=== PATIENT | female | born 1950 | race Caucasian/White ===

== ENCOUNTER 2020-02-14 15:16 | Inpatient (IN) | payer MEDICARE ==
[~2020-02-14] VITALS: Ht 167.6 cm; Wt 77.4 kg
--- NOTE | 2020-02-14 16:58 | NUR ---
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
[2020-02-14] MEDS ORDERED: SODIUM CHLORIDE FLUSH 10ML SYR IVF ONE (17:30)
--- NOTE | 2020-02-14 17:45 | NUR ---
PT RESTING IN GURNEY WITH PT'S AT BEDSIDE, NO NEEDS AT THIS TIME PER PT.
[2020-02-14 17:53] LABS: INTERNATIONAL NORMALIZED RATIO 1.48 (0.93-1.1); PROTHROMBIN TIME 15.6 Seconds (9.6-11.5)
[2020-02-14 17:56] LABS: ALANINE AMINOTRANSFERASE 17 U/L (12-78); ALBUMIN 1.8 g/dL (3.4-5.0); ANION GAP 8 mmol/L (5-15); CALCIUM 9.7 mg/dL (8.5-10.1); CHLORIDE 92 mmol/L (98-107); CREATININE 1.43 mg/dL (0.55-1.02)
[2020-02-14 17:58] LABS: ALKALINE PHOSPHATASE 198 U/L (45-117); BILIRUBIN,TOTAL 1.7 mg/dL (0.2-1.0); TOTAL PROTEIN 7.7 g/dL (6.4-8.2)
[2020-02-14 18:35] LABS: BASOPHILS % (AUTO) 0 % (0-1); EOSINOPHILS % (AUTO) 1 % (1-7); LYMPHOCYTES % (AUTO) 11 % (22-44); MEAN CORPUSCULAR HEMOGLOBIN 31.3 pg (27.0-34.8); MEAN CORPUSCULAR HGB CONC 33.6 g/dL (32.4-35.8); MEAN PLATELET VOLUME 7.2 fL (7.4-10.4); MONOCYTES % (AUTO) 12 % (2-9); NEUTROPHILS % (AUTO) 76 % (42-75); PLATELET COUNT 476 x10^3/uL (130-400); RED BLOOD COUNT 3.97 x10^6/uL (3.82-5.3); RED CELL DISTRIBUTION WIDTH 15.8 % (9.6-15.2)
[2020-02-14 18:39] LABS: MD NO
--- NOTE | 2020-02-14 18:49 | NUR ---
PT RESTING IN [place]ER[place], PER PT NO NEEDS AT THIS TIME.
[2020-02-14 18:50] LABS: MICROSCOPIC NOT IND
--- NOTE | 2020-02-14 19:00 | NUR ---
PT'S AND PT EDUCATED ABOUT THE NEED TO CALL BEFORE GETTING OUT OF BED TO AVOID FALLING. PT CURRENTLY RESTING IN [place], NO NEEDS AT THIS TIME. PT'S AT BEDSIDE.
[2020-02-14] MEDS ORDERED: SODIUM CHLORIDE 0.9%, 500ML IVBOLUS ONE ×2 (19:30→23:30)
[2020-02-14] MEDS ORDERED: LIDOCAINE 1%, 10ML ONE (20:05)
[2020-02-14] MEDS ORDERED: LIDOCAINE-MPF 1%, 5ML ONE (20:05)
--- NOTE | 2020-02-14 20:11 | NUR ---
PT IS AT US AT THIS TIME.
--- NOTE | 2020-02-14 21:08 | NUR ---
PT BACK FROM US VIA [facility].
[2020-02-14] MEDS ORDERED: CHOL10003 PO (23:47)
[2020-02-14] MEDS ORDERED: FURO20TA3 PO (23:47)
[2020-02-14] MEDS ORDERED: OMEP-110 PO (23:47)
[2020-02-14] MEDS ORDERED: RIFA550T4 PO (23:47)
[2020-02-14] MEDS ORDERED: POTA10TA6 PO (23:47)
[2020-02-14] MEDS ORDERED: SPIR100T4 PO (23:47)
[2020-02-14] MEDS ORDERED: METO50TA82 PO (23:47)
[2020-02-14] MEDS ORDERED: QUET100T PO (23:47)
[2020-02-14] MEDS ORDERED: TRAM50TA2 PO (23:47)
--- NOTE | 2020-02-15 00:12 | NUR ---
PT RESTING IN [place], PT'S AT BEDSIDE CURRENTLY. PT'S IS GOING TO GO HOME BUT WOULD LIKE TO BE UPDATED WITH ANY CHANGES TO POC, WILL CALL TOMORROW MORNING. PT OKAY WITH BEING UPDATED AND INFORMED ABOUT POC AND UPDATES.
--- NOTE | 2020-02-15 00:14 | NUR ---
SAVI () CELL PHONE: [phone], HOME PHONE: [phone]
[2020-02-15] MEDS ORDERED: LIDODERM 5% PATCH TD PRN (01:00)
[2020-02-15] MEDS ORDERED: MELATONIN 5 MG TABLET PO PRN (01:00)
[2020-02-15] MEDS ORDERED: ACETAMINOPHEN 325 MG TABLET PO PRN (01:00)
[2020-02-15] MEDS ORDERED: DOCUSATE 100 MG CAPSULE PO PRN (01:00)
[2020-02-15] MEDS ORDERED: LABETALOL 5MG/ML, 20ML IVPush PRN (01:00)
[2020-02-15 01:03] LABS: CHLORIDE,URINE RANDOM 53 mmol/L; POTASSIUM,URINE RANDOM 44 mmol/L; SODIUM,URINE RANDOM 27 mmol/L
[2020-02-15 01:12] LABS: ANION GAP 10 mmol/L (5-15); CALCIUM 8.8 mg/dL (8.5-10.1); CHLORIDE 92 mmol/L (98-107); CREATININE 1.28 mg/dL (0.55-1.02)
[2020-02-15 01:22] LABS: OSMOLALITY,URINE 296 mOsm/kg (500-850)
[2020-02-15 02:00] VITALS: BP 102/70
[2020-02-15] MEDS: HEPARIN 5,000 UNITS/ML, 1ML SQ SCH ×2 (03:44→11:10)
[2020-02-15] MEDS: INSULIN LISPRO 100 UNITS/ML, PEN SQ-INSULIN SCH ×5 (04:03→21:18)
[2020-02-15] MEDS: SODIUM CHLORIDE 0.9% 500 ML IV SCH ×2 (04:04→12:12)
[2020-02-15 07:42] VITALS: BP 100/69
[2020-02-15] MEDS ORDERED: METOPROLOL TARTRATE 25 MG TAB PO SCH (09:00)
[2020-02-15] MEDS ORDERED: FUROSEMIDE 20 MG TABLET PO SCH (09:00)
[2020-02-15] MEDS ORDERED: POTASSIUM CHLORIDE 10 MEQ TABLET.ER PO SCH (09:00)
[2020-02-15] MEDS: OMEPRAZOLE 20 MG CAPSULE.DR PO SCH (11:12)
[2020-02-15] MEDS: RIFAXIMIN 550 MG TABLET PO SCH (11:12)
[2020-02-15] MEDS: CHOLECALCIFEROL 1,000 UNIT TABLET PO SCH (11:13)
[2020-02-15 11:27] VITALS: BP 78/60
[2020-02-15] MEDS: SPIRONOLACTONE 100 MG TABLET PO SCH (11:31)
[2020-02-15] MEDS: QUETIAPINE 100MG TABLET PO SCH ×2 (11:32→21:00)
[2020-02-15 12:15] VITALS: BP 86/61
[2020-02-15 19:35] VITALS: BP 88/60
[2020-02-16 01:03] VITALS: BP 80/56
[2020-02-16 04:15] VITALS: BP 83/58
[2020-02-16 04:42] LABS: BASOPHILS % (AUTO) 1 % (0-1); EOSINOPHILS % (AUTO) 3 % (1-7); LYMPHOCYTES % (AUTO) 18 % (22-44); MEAN CORPUSCULAR HEMOGLOBIN 31.3 pg (27.0-34.8); MEAN CORPUSCULAR HGB CONC 33.7 g/dL (32.4-35.8); MEAN PLATELET VOLUME 6.8 fL (7.4-10.4); MONOCYTES % (AUTO) 12 % (2-9); NEUTROPHILS % (AUTO) 66 % (42-75); PLATELET COUNT 386 x10^3/uL (130-400); RED BLOOD COUNT 3.79 x10^6/uL (3.82-5.3); RED CELL DISTRIBUTION WIDTH 15.9 % (9.6-15.2)
[2020-02-16 04:50] LABS: MD NO
[2020-02-16 04:51] LABS: ANION GAP 5 mmol/L (5-15); CALCIUM 8.6 mg/dL (8.5-10.1); CHLORIDE 98 mmol/L (98-107); CREATININE 1.45 mg/dL (0.55-1.02)
[2020-02-16 05:59] VITALS: BP 97/64
[2020-02-16] MEDS: INSULIN LISPRO 100 UNITS/ML, PEN SQ-INSULIN SCH (06:24)
[2020-02-16 08:20] VITALS: BP 90/62
[2020-02-16] MEDS ORDERED: FUROSEMIDE 40 MG TABLET PO SCH (09:00)
[2020-02-16] MEDS: SPIRONOLACTONE 100 MG TABLET PO SCH (09:30)
[2020-02-16] MEDS: QUETIAPINE 100MG TABLET PO SCH ×2 (09:31→20:53)
[2020-02-16] MEDS: OMEPRAZOLE 20 MG CAPSULE.DR PO SCH (09:31)
[2020-02-16] MEDS: RIFAXIMIN 550 MG TABLET PO SCH (09:31)
[2020-02-16] MEDS: CHOLECALCIFEROL 1,000 UNIT TABLET PO SCH (09:31)
[2020-02-16] MEDS ORDERED: ALBUMIN HUMAN 25% 100 ML IV ONE (13:30)
[2020-02-16 14:25] VITALS: BP 92/60
[2020-02-16 18:47] VITALS: BP 97/66
[2020-02-17 02:00] VITALS: BP 92/58
[2020-02-17] MEDS ORDERED: ALBUMIN HUMAN 25% 100 ML ONE (06:25)
[2020-02-17] MEDS ORDERED: ALBUMIN HUMAN 25% 100 ML IV ONE (06:30)
[2020-02-17 06:45] VITALS: BP 94/60
[2020-02-17 07:57] LABS: BASOPHILS % (AUTO) 1 % (0-1); EOSINOPHILS % (AUTO) 3 % (1-7); LYMPHOCYTES % (AUTO) 17 % (22-44); MEAN CORPUSCULAR HEMOGLOBIN 31.6 pg (27.0-34.8); MEAN CORPUSCULAR HGB CONC 33.8 g/dL (32.4-35.8); MEAN PLATELET VOLUME 6.8 fL (7.4-10.4); MONOCYTES % (AUTO) 12 % (2-9); NEUTROPHILS % (AUTO) 67 % (42-75); PLATELET COUNT 373 x10^3/uL (130-400); RED CELL DISTRIBUTION WIDTH 15.9 % (9.6-15.2)
[2020-02-17 08:06] LABS: MD NO
[2020-02-17 08:08] LABS: CHLORIDE 97 mmol/L (98-107)
[2020-02-17 08:15] LABS: ALANINE AMINOTRANSFERASE 14 U/L (12-78); ALBUMIN 1.9 g/dL (3.4-5.0); ALKALINE PHOSPHATASE 148 U/L (45-117); ANION GAP 8 mmol/L (5-15); BILIRUBIN,TOTAL 1.7 mg/dL (0.2-1.0); TOTAL PROTEIN 5.9 g/dL (6.4-8.2)
[2020-02-17] MEDS ORDERED: FUROSEMIDE 40 MG TABLET PO SCH ×2 (09:00)
[2020-02-17] MEDS: QUETIAPINE 100MG TABLET PO SCH (09:45)
[2020-02-17] MEDS: CHOLECALCIFEROL 1,000 UNIT TABLET PO SCH (09:45)
[2020-02-17] MEDS: OMEPRAZOLE 20 MG CAPSULE.DR PO SCH (09:45)
[2020-02-17] MEDS: RIFAXIMIN 550 MG TABLET PO SCH (09:45)
[2020-02-17 11:12] VITALS: BP 90/59
[2020-02-17] MEDS: SPIRONOLACTONE 100 MG TABLET PO SCH (11:54)
[2020-02-17 12:01] VITALS: BP 94/63
[2020-02-17] MEDS: MIDODRINE 5 MG TABLET PO SCH ×2 (13:05→16:05)
[2020-02-17 13:10] VITALS: BP 110/69
[2020-02-17] MEDS ORDERED: FURO40TA6 PO (16:34)
[2020-02-17] MEDS ORDERED: MIDO5TAB9 PO (16:34)
== END 2020-02-17 18:25 | disposition home health service (06) | DRG 432 ==
LOC: ED 23:48 → EDIP 02-15 00:33 → 4WST 02-15 01:53
PROVIDERS: ADMIT Internal Medicine; ATTEND Hospitalist
PROC: 0W9G3ZZ Drainage of Peritoneal Cavity, Percutaneous Approach (ICD-10-PCS; principal; 2020-02-15)
PROC: 0T9B70Z Drainage of Bladder with Drainage Device, Via Natural or Artificial Opening (ICD-10-PCS; 2020-02-15)
DX: K70.31 Alcoholic cirrhosis of liver with ascites (principal); G93.41 Metabolic encephalopathy; N17.0 Acute kidney failure with tubular necrosis; E43 Unspecified severe protein-calorie malnutrition; D68.9 Coagulation defect, unspecified; E87.1 Hypo-osmolality and hyponatremia; E87.70 Fluid overload, unspecified; I10 Essential (primary) hypertension; Z81.1 Family history of alcohol abuse and dependence; Z85.820 Personal history of malignant melanoma of skin; Z68.27 Body mass index [BMI] 27.0-27.9, adult
CPT/HCPCS: 36415; 49083; 80048; 80053; 81003; 82042; 82140; 82436; 82533; 82945; 82962; 83605; 83615; 83690; 83735; 83935; 84100; 84133; 84145; 84300; 85025; 85610; 85730; 87040; 87070; 87205; 89051; G0378; J1644; P9047; J7040